=== PATIENT | female | born 1985 | race Caucasian/White ===

== ENCOUNTER 2018-07-30 09:04 | Emergency (ER) | payer BC | END 2018-07-30 12:06 | disposition home or self-care (01) | LOC: E/R 09:04 → FTE 12:06 | DX: O99.89 Other specified diseases and conditions complicating pregnancy, childbirth and the puerperium (principal); M54.2 Cervicalgia; M25.571 Pain in right ankle and joints of right foot; Z3A.11 11 weeks gestation of pregnancy | CPT/HCPCS: 72040; 73610-RT; 76801; 99284-25 ==